=== PATIENT | female | born 1950 | race Caucasian/White ===

== ENCOUNTER 2017-04-01 22:43 | Emergency (ER) | payer BC, OTHER ==
[~2017-04-01] VITALS: Ht 157.5 cm; Wt 105.2 kg
[~2017-04-01 22:43] MED LIST: ATORVASTATIN CA40 MG PO; BYSTOLIC2.5 MG PO; D3 + K2 DOTS 11 EACH PO; ENDOCET 5-3251 EACH PO; FISH OIL 1,2001 EAC4 PO; LORAZEPAM0.5 MG PO; MAGNESIUM CITR100 MG PO; PRILOSEC20 MG PO; ST. JOSEPH ASPI81 MG PO; VALSARTAN-HCTZ1 EAC3 PO; ZOLPIDEM TARTRAT5 MG PO
[2017-04-01 23:06] LABS: HEMATOCRIT 39.9 % (36.0-46.0); MCHC 33.6 G/DL (30.0-36.0); MCV 83.5 FL (83-99); MEAN PLAT.VOLUME 8.7 uM^3 (9.5-12.4); PLATELET COUNT 213 K/uL (156-360); RBC DIS.WIDTH-CV 13.4 % (11.8-14.6); RBC DIS.WIDTH-SD 40.8 % (39-53); RED BLOOD COUNT 4.78 M/uL (3.80-5.20); WHITE BLOOD COUNT 10.1 K/uL (4.1-10.2)
[2017-04-01 23:16] LABS: CHLORIDE 106 mEq/L (99-109); POTASSIUM 3.3 mEq/L (3.7-5.4); SODIUM 142 mEq/L (136-147)
[2017-04-01 23:18] LABS: GLUCOSE 141 mg/dL (70-99)
[2017-04-01 23:19] LABS: ANION GAP 11 MEQ/L (2-14)
[2017-04-01 23:21] LABS: GFR ESTIMATE (CALCULATED) > 59 mL/min/
[2017-04-01 23:22] LABS: UREA NITROGEN (BUN) 14 mg/dL (9-23)
[2017-04-01 23:28] LABS: TROP-I INTERPRETATION NEGATIVE; TROPONIN-I < 0.01 ng/mL (0.0-0.30)
[2017-04-01 23:57] LABS: PROTHROMBIN TIME 11.5 SEC (10.2-12.9)
[2017-04-01 23:59] LABS: D-DIMER ELISA < 150.00 ng/mLDDU (<230); PTT 28.9 SEC (25-37)
[2017-04-02 00:02] LABS: TOTAL BILIRUBIN 0.4 mg/dL (0.0-1.0)
[2017-04-02 00:03] LABS: ALKALINE PHOSPHATASE 104 IU/L (3-129)
[2017-04-02 00:05] LABS: DIRECT BILIRUBIN 0.1 mg/dL (0.0-0.3)
[2017-04-02 00:07] LABS: LIPASE 29 U/L (1.0-51.0)
[2017-04-02 01:39] LABS: TROP-I INTERPRETATION NEGATIVE; TROPONIN-I < 0.01 ng/mL (0.0-0.30)
[2017-04-02 02:19] VITALS: BP 119/61
== END 2017-04-02 02:27 | disposition home or self-care (01) ==
LOC: EME 22:43
PROVIDERS: Emergency Medicine
DX: R00.2 Palpitations (principal); R07.89 Other chest pain; I10 Essential (primary) hypertension; E11.9 Type 2 diabetes mellitus without complications; E78.5 Hyperlipidemia, unspecified; K21.9 Gastro-esophageal reflux disease without esophagitis; F41.9 Anxiety disorder, unspecified; Z79.82 Long term (current) use of aspirin; Z87.891 Personal history of nicotine dependence; Z88.0 Allergy status to penicillin
CPT/HCPCS: 71020; 80048; 80076; 83690; 83735; 84100; 84484; 85027; 85379; 85610; 85730; 93005; 99281; 99284